=== PATIENT | female | born 1995 | race Two or more races ===

== ENCOUNTER 2017-04-09 23:48 | Emergency (ER) | payer BC ==
[~2017-04-09] VITALS: Ht 157.5 cm; Wt 55.5 kg
[2017-04-09 23:50] VITALS: BP 128/86
[2017-04-10] MEDS ORDERED: LIDOCAINE 1%, 20ML SQ ONE (00:30)
[2017-04-10] MEDS ORDERED: BUPIVACAINE/PF-EPI 0.25% 1:200K SQ ONE (00:30)
== END 2017-04-10 00:51 | disposition home or self-care (01) ==
LOC: ED 23:59
DX: K04.7 Periapical abscess without sinus (principal); K01.1 Impacted teeth
CPT/HCPCS: 64400; 99284; J3490